=== PATIENT | male | born 1990 | race Caucasian/White ===

== ENCOUNTER 2020-10-06 21:49 | Inpatient (IN) ==
[2020-10-06] MEDS ORDERED: oxyCODONE HCL IR 5 MG TAB (IMMEDIATE RELEASE) PO STA (22:45)
[2020-10-06] MEDS ORDERED: XYLOCAINE 1%/SOD BICARB 20 ML VIAL INFIL ONE (22:45)
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
[2020-10-06 23:18] LABS: Basophils # (auto) 0.02 K/uL (0-0.2); Basophils % (auto) 0.3 %; Eosinophils % (auto) 1.5 %; Hematocrit (blood only) 45.6 % (42-52); Hemoglobin 16.1 g/dL (14.0-18.0); Lymphocytes # (auto) 1.35 K/uL (1.2-3.4); Lymphocytes % (auto) 19.7 %; Mean Corpuscular Hemoglobin 33.8 pg (25-34); Mean Corpuscular Hgb Conc 35.3 g/dL (32-36); Mean Corpuscular Volume 95.6 fL (80-100); Mean Platelet Volume 10.2 fL (7.4-10.4); Monocytes % (auto) 8.7 %; Neutrophils % (auto) 69.8 %; Platelet Count 233 K/uL (130-400); RDW Coefficient of Variation 12.5 % (11.5-14.5); RDW Standard Deviation 43.5 fL (36.4-46.3); Red Blood Count 4.77 M/uL (4.7-6.1); White Blood Count 6.87 K/uL (4.8-10.8)
[2020-10-06 23:38] LABS: Albumin Level 4.1 gm/dl (3.4-5.0); BUN Creatinine Ratio 19.7 (10-20); Calcium 8.9 mg/dl (8.5-10.1); Creatinine Clr Calc Pharmacy 112.3 ml/min; Est GFR (African American) 139.5 ml/min; Est GFR (Non-African American) 120.3 ml/min; Potassium 3.6 mmol/L (3.5-5.1)
[2020-10-06 23:41] LABS: Albumin Globulin Ratio 1.1 (0.9-2); Bilirubin,Total 0.3 mg/dl (0.2-1); Globulin 3.6 gm/dl (2.5-4.0); Total Protein 7.7 gm/dl (6.4-8.2)
[2020-10-07] MEDS ORDERED: OPTIRAY 320 100ml IV ONE (00:32)
[2020-10-07 00:51] LABS: Appearance Urine Clear (Clear); Bilirubin Urine Negative (Negative); Blood Urine Negative (Negative); Color Urine Yellow; Glucose Urine UA Negative (Negative); Ketones Urine Negative (Negative); Leukocyte Esterase Urine Negative (Negative); Nitrite Urine Negative (Negative); Protein Urine Negative (Negative); Specific Gravity Urine > 1.045 (1.000-1.030); Urobilinogen Urine Negative (Negative)
[2020-10-07] MEDS ORDERED: LIDO/EPINEPHRINE/SOD BICARB 20 ML VIAL ONE (00:57)
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
[2020-10-07] MEDS ORDERED: ACETAMINOPHEN 500 MG TAB PO PRN (06:43)
[2020-10-07] MEDS ORDERED: ONDANSETRON INJ 2 MG/ML 2 ML VIAL IV PRN (06:44)
[2020-10-07] MEDS ORDERED: ALBUT/IPRATROP 3MG/0.5MG NEB 3 ML VIAL INH PRN (06:46)
[2020-10-07] MEDS ORDERED: LACTATED RINGER'S 1,000 ML IV SCH (07:00)
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
[2020-10-07] MEDS ORDERED: LORATADINE 10 MG TAB PO SCH (09:00)
[2020-10-07] MEDS ORDERED: MONTELUKAST SODIUM 10 MG TABLET PO SCH (09:00)
[2020-10-07] MEDS ORDERED: FLUTICASONE/VILANTEROL 200/25MCG 14 PUFFS/INHALER INH SCH (09:00)
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
--- NOTE | 2020-10-07 11:10 | Surgery Progress Note ---
Date of Service October 07, 2020 Assessment & Plan (1) Lung contusion: Plan: CXR stable ok for discharge seen with Dr. Elaine Admission and Anticipated Discharge Date Admission Date: October 07, 2020 Subjective some soreness, no SOB Physical Exam Constitutional: WD/WN, vitals as above Respiratory: normal respiratory effort, lungs clear to auscultation Results & Data ([facility]) Vital Signs (Past 12 Hours) Vital Signs Temp Pulse Pulse Resp BP BP BP 10/07/20 07:10 37.1 C 84 16 129/90 10/07/20 06:05 37.1 C 77 14 142/95 H 10/07/20 05:37 83 18 135/94 10/07/20 01:30 121/85 10/07/20 00:36 131/93 10/06/20 23:30 95 H 17 135/80 Pulse Ox 10/07/20 07:10 98 10/07/20 06:05 97 10/07/20 05:37 97 10/07/20 01:30 95 10/07/20 00:36 96 10/06/20 23:30 95 PG Care Time/CCT Total # of Minutes Spent Total Time Spent with Patient: Total time spent is greater than 50% in coordination of care (as documented) at patient's floor/unit and/or counseling patient: Coding Level of Care Code 87683 Subseq Hosp Care Lvl 1 Diagnoses Lung contusion S27.329A
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
--- NOTE | 2020-10-07 17:07 | Electrocardiogram Report ---
Test Reason : Blood Pressure : / mmHG Vent. Rate : 074 BPM Atrial Rate : 074 BPM P-R Int : 182 ms QRS Dur : 120 ms QT Int : 378 ms P-R-T Axes : 035 056 038 degrees QTc Int : 419 ms Normal sinus rhythm Non-specific intra-ventricular conduction delay Borderline ECG No previous ECGs available Confirmed by Kale Charles ([id number]) on 10/07/2020 5:06:32 PM Referred By: REFERRED SELF Confirmed By:Isaiah Charles
--- NOTE | 2020-10-07 17:09 | Electrocardiogram Report ---
Test Reason : Blood Pressure : / mmHG Vent. Rate : 078 BPM Atrial Rate : 078 BPM P-R Int : 186 ms QRS Dur : 110 ms QT Int : 378 ms P-R-T Axes : 058 081 051 degrees QTc Int : 430 ms Normal sinus rhythm Incomplete right bundle branch block Borderline ECG When compared with ECG of 07-OCT-2020 02:30, (unconfirmed) Incomplete right bundle branch block has replaced Non-specific intra-ventricular conduction delay Confirmed by Kale Charles ([id number]) on 10/07/2020 5:09:25 PM Referred By: REFERRED SELF Confirmed By:Isaiah Charles
[2020-10-07] MEDS ORDERED: GABAPENTIN 100 MG CAP PO SCH (21:00)
== END 2020-10-07 13:20 | disposition home or self-care (01) | DRG 206 ==
LOC: ED 21:49 → 2N 10-07 04:58